=== PATIENT | male | born 1970 | race Hispanic/Latino ===

== ENCOUNTER → 2018-01-20 | Outpatient (CLI) | payer BC | END | disposition home or self-care (01) | LOC: RAH 08:35 | PROVIDERS: ATTEND Internal Medicine Cardiovascular Disease | DX: R07.9 Chest pain, unspecified (principal); R94.31 Abnormal electrocardiogram [ECG] [EKG] | CPT/HCPCS: 78452; 93017; A9500 ×2 ==

== ENCOUNTER → 2018-07-26 | Outpatient (CLI) | payer BC | END | disposition home or self-care (01) | LOC: RAH 07:50 | PROVIDERS: ATTEND Internal Medicine Cardiovascular Disease | DX: K76.0 Fatty (change of) liver, not elsewhere classified (principal) | CPT/HCPCS: 76705 ==

== ENCOUNTER 2019-11-29 18:32 | Inpatient (IN) | payer BC ==
[~2019-11-29] VITALS: Ht 162.6 cm; Wt 104.5 kg
[2019-11-29 18:55] LABS: BASOPHILS % (AUTO) 0.1 % (0.0-5.0); EOSINOPHILS % (AUTO) 2.1 % (0.0-8.0); HEMATOCRIT 46.9 % (42-54); MEAN CORPUSCULAR HGB CONC 34.8 g/dL (32.0-36.0); MEAN CORPUSCULAR VOLUME 92.1 fL (79-99); MONOCYTES % (AUTO) 3.8 % (3.0-13.0); NEUTROPHILS % (AUTO) 89.7 % (40.0-77.0); PLATELET COUNT (AUTO) 217 K/uL (130-400); RED BLOOD CELL COUNT(AUTO) 5.09 MIL/uL (4.50-6.20); RED CELL DISTRIBUTION WIDTH 12.6 % (11.0-15.5); WHITE BLOOD COUNT (AUTO) 10.9 K/uL (4.8-10.8)
[2019-11-29 19:26] LABS: CARBON DIOXIDE 25 mmol/L (21-32); CHLORIDE 100 mmol/L (101-111); CREATININE 1.3 mg/dL (0.5-1.5); GLOMERULAR FILTR. RATE CALC 62 mL/min (>60); GLUCOSE,RANDOM 128 mg/dL (70-105); POTASSIUM 3.9 mmol/L (3.5-5.1); SODIUM SERUM 133 mmol/L (136-145); UREA NITROGEN, BLOOD 22 mg/dL (7-18)
[2019-11-29 19:31] LABS: INR 0.95 (0.85-1.15); PARTIAL THROMBOPLASTIN TIME 34.1 SEC (26.3-35.5); PROTHROMBIN TIME 10.3 SEC (9.6-11.6)
[2019-11-29] MEDS ORDERED: CEFTRIAXONE SODIUM 2 GM VIAL ONE (19:39)
[2019-11-29] MEDS ORDERED: ONDANSETRON HCL 4 MG/2 ML VIAL ONE (19:39)
[2019-11-29] MEDS ORDERED: METHYLPREDNISOLONE SOD SUCC 40MG/ML 1ML ONE (19:39)
[2019-11-29 19:40] LABS: ALANINE AMINOTRANSFERASE 50 U/L (12-78); ALBUMIN 3.5 g/dL (3.5-5.0); ASPARTATE AMINOTRANSFERASE 43 U/L (10-37); BILIRUBIN,TOTAL 0.5 mg/dL (0.2-1.0); MYOGLOBIN 113 ng/mL (10-92); TOTAL PROTEIN, SERUM 8.3 g/dL (6.0-8.3); TROPONIN I < 0.04 ng/mL (0.00-0.06)
[2019-11-29 19:42] LABS: CREATINE KINASE, TOTAL 419 U/L (21-232)
[2019-11-29 19:56] LABS: ABG BASE EXCESS 0.8 mmol/L (-2.0-3.0); ABG HCO3 25.1 mmol/L (21.0-28.0); ABG OXYGEN SATURATION 94.8 % (95.0-99.0); ABG PCO2 39 mmHg (35-48)
[2019-11-29] MEDS ORDERED: SODIUM CHLORIDE 0.9% 1000ML 1,000 ML IV SCH (21:44)
[2019-11-29] MEDS ORDERED: MAG HYDROX/AL HYDROX/SIMETH ES 30 ML SUSP UDCUP PO PRN (21:45)
[2019-11-29] MEDS ORDERED: LACTULOSE 20 GM/30 ML UDCUP PO PRN (21:45)
[2019-11-29] MEDS ORDERED: ERGOCALCIFEROL (VITAMIN D2) 50,000 UNIT CAPSULE PO ONE (21:45)
[2019-11-29] MEDS ORDERED: HYDRALAZINE HCL 20 MG/ML VIAL IV PRN (21:45)
[2019-11-29] MEDS ORDERED: BENZONATATE 100 MG CAPSULE PO PRN (21:45)
[2019-11-29] MEDS ORDERED: PHARMACY COMMUNICATION MISC SCH (21:45)
[2019-11-29] MEDS ORDERED: GUAIFENESIN-DM 200/20 MG 10 ML PO PRN (21:45)
[2019-11-29] MEDS ORDERED: MAG HYDROX/AL HYDROX/SIMETH 30 ML, LIDOCAINE HCL 2% VISCOUS 30 ML, DIPHENHYDRAMINE HCL ... PO PRN ×3 (21:45)
[2019-11-29] MEDS ORDERED: NITROGLYCERIN 0.4 MG SL TAB SL PRN (21:45)
[2019-11-29] MEDS ORDERED: IPRATROPIUM 0.5 MG/2.5 ML INH IH PRN (21:45)
[2019-11-29] MEDS ORDERED: ONDANSETRON HCL 4 MG/2 ML VIAL IV PRN (21:45)
[2019-11-29] MEDS ORDERED: LIDOCAINE HCL 2% VISCOUS 30 ML, MAG HYDROX/AL HYDROX/SIMETH 30 ML, BELLADONNA-PHENOBARB... PO PRN ×3 (21:45)
[2019-11-29] MEDS ORDERED: MORPHINE SULFATE 4 MG/1ML SYG IV PRN (21:45)
[2019-11-29] MEDS ORDERED: MORPHINE SULFATE 2 MG/ML 1ML SYG IV PRN (21:45)
[2019-11-29] MEDS ORDERED: ACETAMINOPHEN 325 MG TAB PO PRN (21:45)
[2019-11-29] MEDS: IPRATROPIUM/ALBUTEROL SULFATE 3 ML SOLUTION IH SCH (22:00)
[2019-11-29] MEDS ORDERED: IOHEXOL 350 MG/ML 100ML INFUS..BTL IV ONE (22:31)
[2019-11-29] MEDS ORDERED: ALBUTEROL INHALER 90MCG/INH IH ONE (22:37)
[2019-11-29] MEDS ORDERED: AZITHROMYCIN 500MG+NS 250ML 250 ML IV ONE (22:38)
[2019-11-29] MEDS ORDERED: ERGOCALCIFEROL (VITAMIN D2) 50,000 UNIT CAPSULE ONE (22:38)
[2019-11-29] MEDS ORDERED: DEXAMETHASONE SOD PHOSPHATE 10MG/ML 1ML VIAL ONE (22:38)
[2019-11-30] VITALS (7 sets, daily range): BP systolic 111–152; BP diastolic 58–93
[2019-11-30] MEDS: IPRATROPIUM/ALBUTEROL SULFATE 3 ML SOLUTION IH SCH ×6 (02:00→22:00)
[2019-11-30] MEDS ORDERED: LEVO125T11 PO (02:48)
[2019-11-30] MEDS ORDERED: LOVA20TA3 PO (02:48)
[2019-11-30] MEDS ORDERED: LAMO200T10 PO (02:48)
[2019-11-30 04:54] LABS: HEMATOCRIT 46.9 % (42-54); LYMPHOCYTES % (AUTO) 4.9 % (21.0-51.0); MEAN CORPUSCULAR HEMOGLOBIN 31.6 pg (27.0-33.0); MEAN CORPUSCULAR HGB CONC 33.7 g/dL (32.0-36.0); MEAN CORPUSCULAR VOLUME 93.8 fL (79-99); NEUTROPHILS % (AUTO) 91.6 % (40.0-77.0); PLATELET COUNT (AUTO) 230 K/uL (130-400); RED CELL DISTRIBUTION WIDTH 12.8 % (11.0-15.5); WHITE BLOOD COUNT (AUTO) 7.9 K/uL (4.8-10.8)
[2019-11-30 05:16] LABS: BILIRUBIN,TOTAL 0.3 mg/dL (0.2-1.0); CREATININE 1.4 mg/dL (0.5-1.5); CRP QUANTITATIVE 119.4 mg/L (0.00-9.0); MAGNESIUM 2.5 mg/dL (1.80-2.40); PHOSPHORUS 4.2 mg/dL (2.5-4.9); POTASSIUM 4.1 mmol/L (3.5-5.1); TOTAL PROTEIN, SERUM 7.9 g/dL (6.0-8.3)
[2019-11-30] MEDS: HEPARIN SODIUM 5000UNIT/ML 1ML VIAL SQ SCH ×3 (06:00→21:13)
[2019-11-30] MEDS: ZINC SULFATE 220 CAPSULE PO SCH (08:12)
[2019-11-30] MEDS: ACETYLCYSTEINE 600 MG CAPSULE PO SCH ×2 (08:13→20:55)
[2019-11-30] MEDS: FAMOTIDINE/PF 20 MG/2 ML VIAL IV SCH ×2 (08:13→20:53)
[2019-11-30] MEDS: ASCORBIC ACID 500 MG TAB PO SCH (08:13)
[2019-11-30] MEDS ORDERED: SODIUM CHLORIDE 0.9% 100 ML IV ONE (10:26)
--- NOTE | 2019-11-30 15:27 | NUR ---
DC PLAN PATIENT LIVES WITH DAUGHTER. PATIENT HAS NO SERVICES OR DME'S. INDEPENDENT ABLE TO PERFORM ADL'S. FEELS SAFE TO RETURN HOME. Addendum: 11/30/19 at 1529 by EDUARDO ZAVALA RN CM Amended: Links added.
[2019-11-30] MEDS ORDERED: CLONAZEPAM 0.5 MG TABLET PO PRN (16:00)
[2019-11-30] MEDS ORDERED: METOPROLOL TARTRATE 1 MG/ML 5ML VIAL IV PRN (18:45)
[2019-11-30 18:48] LABS: ABG BASE EXCESS -0.6 mmol/L (-2.0-3.0); ABG HCO3 22.7 mmol/L (21.0-28.0); ABG OXYGEN SATURATION 83.6 % (95.0-99.0); ABG PCO2 34 mmHg (35-48)
--- NOTE | 2019-11-30 19:16 | NUR ---
Pt placed on Bipap during change of shift due to declining respiratory status. Stat abgs done and primary team made aware of results. Will get repeat ABGs in 1 hr. Patient given 1 unit of conva. plasma during shift and 2nd unit started. Oncoming RN notified of plan of care.
[2019-11-30] MEDS ORDERED: AZITHROMYCIN 500MG+NS 250ML 250 ML IV ONE (19:37)
[2019-11-30] MEDS: CEFTRIAXONE SODIUM 1 GM IVP SCH (20:53)
[2019-11-30] MEDS: DiphenhydrAMINE HCL 50 MG/ML VIAL IV PRN (20:58)
[2019-11-30] MEDS ORDERED: DEXAMETHASONE SOD PHOSPHATE 4 MG/ML 1ML VIAL IVP SCH (21:00)
[2019-11-30] MEDS: AZITHROMYCIN 500MG+NS 250ML 250 ML IV SCH (21:11)
[2019-11-30] MEDS: ENOXAPARIN SODIUM 60 MG/0.6 ML SQ SCH (23:15)
[2019-11-30] MEDS: METHYLPREDNISOLONE SOD SUCC 125MG/2ML VIAL IVP SCH (23:34)
[2019-12-01] MEDS: IPRATROPIUM/ALBUTEROL SULFATE 3 ML SOLUTION IH SCH ×5 (02:00→12:11)
[2019-12-01 03:00] VITALS: BP 115/69
[2019-12-01 05:33] LABS: BASOPHILS % (AUTO) 0.1 % (0.0-5.0); HEMATOCRIT 49.6 % (42-54); MEAN CORPUSCULAR HEMOGLOBIN 31.4 pg (27.0-33.0); MEAN CORPUSCULAR HGB CONC 33.1 g/dL (32.0-36.0); MEAN CORPUSCULAR VOLUME 94.8 fL (79-99); MONOCYTES % (AUTO) 2.8 % (3.0-13.0); NEUTROPHILS % (AUTO) 92.5 % (40.0-77.0); PLATELET COUNT (AUTO) 277 K/uL (130-400); RED BLOOD CELL COUNT(AUTO) 5.23 MIL/uL (4.50-6.20); RED CELL DISTRIBUTION WIDTH 12.8 % (11.0-15.5)
[2019-12-01 05:55] LABS: ALBUMIN 2.9 g/dL (3.5-5.0); BILIRUBIN,TOTAL 0.5 mg/dL (0.2-1.0); CREATININE 1.4 mg/dL (0.5-1.5); MAGNESIUM 2.8 mg/dL (1.80-2.40); PHOSPHORUS 3.8 mg/dL (2.5-4.9); POTASSIUM 4.4 mmol/L (3.5-5.1)
[2019-12-01 07:09] LABS: CRP QUANTITATIVE 183.7 mg/L (0.00-9.0)
[2019-12-01] MEDS: LEVOTHYROXINE 125 MCG TABLET PO SCH (07:34)
[2019-12-01] MEDS: METHYLPREDNISOLONE SOD SUCC 125MG/2ML VIAL IVP SCH ×3 (07:34→20:13)
[2019-12-01] MEDS: ASCORBIC ACID 500 MG TAB PO SCH (08:40)
[2019-12-01] MEDS: ZINC SULFATE 220 CAPSULE PO SCH (08:40)
[2019-12-01] MEDS: ACETYLCYSTEINE 600 MG CAPSULE PO SCH ×2 (08:40→20:14)
[2019-12-01] MEDS: FAMOTIDINE/PF 20 MG/2 ML VIAL IV SCH ×2 (08:40→20:11)
[2019-12-01] MEDS: LAMOTRIGINE 100 MG TABLET PO SCH ×2 (08:40→20:14)
[2019-12-01] MEDS: CEFTRIAXONE SODIUM 1 GM IVP SCH ×2 (08:40→20:13)
[2019-12-01] MEDS: ENOXAPARIN SODIUM 60 MG/0.6 ML SQ SCH ×2 (08:41→20:14)
[2019-12-01 08:42] VITALS: BP 130/78
[2019-12-01] MEDS ORDERED: COMPOUND IV REFRIGERATED 1 EACH IVSOLN MISC PRN (09:30)
[2019-12-01] MEDS ORDERED: REMDESIVIR (EUA) 520 200 MG in SODIUM CHLORIDE 0.9% 250 ML IV SCH (09:30)
[2019-12-01 10:39] LABS: ABG BASE EXCESS -1.1 mmol/L (-2.0-3.0); ABG HCO3 24.9 mmol/L (21.0-28.0); ABG OXYGEN SATURATION 94.1 % (95.0-99.0); ABG PCO2 46 mmHg (35-48)
[2019-12-01 12:04] VITALS: BP 145/86
[2019-12-01] MEDS: ALBUTEROL INHALER 90MCG/INH IH SCH ×2 (12:15→17:33)
[2019-12-01] MEDS: IPRATROPIUM 0.5 MG/2.5 ML INH IH SCH (13:17)
[2019-12-01] MEDS: HYDROXYZINE HCL 25 MG TABLET PO PRN (14:55)
[2019-12-01] MEDS ORDERED: PHARMACY COMMUNICATION MISC SCH (15:00)
[2019-12-01 17:28] VITALS: BP 151/87
[2019-12-01 19:00] VITALS: BP 132/77
[2019-12-01] MEDS: HYDROXYCHLOROQUINE SULFATE 200 MG TAB PO SCH (20:14)
[2019-12-01] MEDS: DiphenhydrAMINE HCL 50 MG/ML VIAL IV PRN (20:15)
[2019-12-01] MEDS: AZITHROMYCIN 500MG+NS 250ML 250 ML IV SCH (20:15)
[2019-12-01] MEDS: ZOLPIDEM TARTRATE 5 MG TAB PO PRN (20:19)
--- NOTE | 2019-12-01 21:35 | NUR ---
Nurse at bedside for medication administration/assessment. After swabbing patient's mouth his oxygen saturation dropped to 82. Heart rate 51. Bipap placed back on. No oral medications/nutrition recommended at this time. Will continue to monitor.
[2019-12-01 23:00] VITALS: BP 136/89
[2019-12-02] VITALS (8 sets, daily range): BP systolic 98–164; BP diastolic 61–98
[2019-12-02] MEDS: ALBUTEROL INHALER 90MCG/INH IH SCH ×4 (00:25→18:00)
[2019-12-02] MEDS: IPRATROPIUM 0.5 MG/2.5 ML INH IH SCH (00:25)
[2019-12-02] MEDS: METHYLPREDNISOLONE SOD SUCC 125MG/2ML VIAL IVP SCH ×4 (03:00→20:42)
[2019-12-02 04:57] LABS: ABG BASE EXCESS 1.2 mmol/L (-2.0-3.0); ABG HCO3 26.6 mmol/L (21.0-28.0); ABG OXYGEN SATURATION 82.8 % (95.0-99.0); ABG PCO2 45 mmHg (35-48)
[2019-12-02 05:10] LABS: BASOPHILS % (AUTO) 0.3 % (0.0-5.0); MEAN CORPUSCULAR VOLUME 94.5 fL (79-99); NEUTROPHILS % (AUTO) 89.7 % (40.0-77.0)
[2019-12-02 05:28] LABS: ALBUMIN 2.6 g/dL (3.5-5.0); BILIRUBIN,TOTAL 0.5 mg/dL (0.2-1.0); CREATININE 1.2 mg/dL (0.5-1.5); HEMATOCRIT 48.1 % (42-54); LYMPHOCYTES % (AUTO) 2.8 % (21.0-51.0); MEAN CORPUSCULAR HEMOGLOBIN 31.6 pg (27.0-33.0); MEAN CORPUSCULAR HGB CONC 33.5 g/dL (32.0-36.0); MONOCYTES % (AUTO) 4.5 % (3.0-13.0); PHOSPHORUS 3.2 mg/dL (2.5-4.9); PLATELET COUNT (AUTO) 298 K/uL (130-400); POTASSIUM 4.2 mmol/L (3.5-5.1); RED BLOOD CELL COUNT(AUTO) 5.09 MIL/uL (4.50-6.20); TOTAL PROTEIN, SERUM 7.9 g/dL (6.0-8.3); WHITE BLOOD COUNT (AUTO) 13.2 K/uL (4.8-10.8)
[2019-12-02] MEDS: PHARMACY COMMUNICATION MISC SCH (05:50)
[2019-12-02 06:14] LABS: CRP QUANTITATIVE 191.3 mg/L (0.00-9.0)
--- NOTE | 2019-12-02 06:30 | NUR ---
Attention MD Please call patient's (Sofia Akbar) for update.
--- NOTE | 2019-12-02 07:42 | NUR ---
Initial contact Pt currently in room 208, report received from AM nurse. Pt aaox4, airway patent on bipap speaking in short sentences. Pt currently tolerating BIPAP I/E /8 RR 18 fiO2 at 100% Pt connected to continous pulse ox monitor, and tele box in semi garrett position. No complaints at this time. VS stable. Informed plan of care
[2019-12-02] MEDS: HYDROXYCHLOROQUINE SULFATE 200 MG TAB PO SCH ×2 (09:19→20:36)
[2019-12-02] MEDS: ASCORBIC ACID 500 MG TAB PO SCH (09:19)
[2019-12-02] MEDS: LAMOTRIGINE 100 MG TABLET PO SCH ×2 (09:19→20:37)
[2019-12-02] MEDS: ENOXAPARIN SODIUM 60 MG/0.6 ML SQ SCH ×2 (09:20→20:36)
[2019-12-02] MEDS: ZINC SULFATE 220 CAPSULE PO SCH (09:21)
[2019-12-02] MEDS: FAMOTIDINE/PF 20 MG/2 ML VIAL IV SCH ×2 (09:21→20:39)
[2019-12-02] MEDS: CEFTRIAXONE SODIUM 1 GM IVP SCH ×2 (09:21→20:39)
[2019-12-02] MEDS: ACETYLCYSTEINE 600 MG CAPSULE PO SCH ×2 (09:22→20:36)
[2019-12-02] MEDS: LEVOTHYROXINE 125 MCG TABLET PO SCH (09:22)
[2019-12-02] MEDS ORDERED: SODIUM CHLORIDE 0.9% 100 ML IV ONE (09:23)
[2019-12-02] MEDS: REMDESIVIR (EUA) 520 100 MG in SODIUM CHLORIDE 0.9% 250 ML IV SCH (13:32)
--- NOTE | 2019-12-02 17:34 | NUR ---
Consult Dr Bello by bedside. Informed of pts worsening cxr and updated labs. Informed pt plan of care
[2019-12-02 18:54] LABS: ABG HCO3 27.6 mmol/L (21.0-28.0); ABG OXYGEN SATURATION 91.5 % (95.0-99.0); ABG PCO2 42 mmHg (35-48)
[2019-12-02] MEDS: AZITHROMYCIN 500MG+NS 250ML 250 ML IV SCH (21:59)
--- NOTE | 2019-12-02 22:50 | NUR ---
Patient family updated on status. He is on Bipap machine rate of 20/8 and 100% FI02. POX 98%, P02 59. In stable condition. All PM meds given. Will continue to monitor.
[2019-12-02] MEDS: HYDROXYZINE HCL 25 MG TABLET PO PRN (23:08)
[2019-12-03] MEDS: ACETAMINOPHEN 325 MG TAB PO PRN ×2 (01:01→22:44)
[2019-12-03] MEDS: DIPHENHYDRAMINE HCL 25 MG CAPSULE PO PRN ×2 (01:01→22:43)
[2019-12-03] MEDS: METHYLPREDNISOLONE SOD SUCC 125MG/2ML VIAL IVP SCH ×4 (02:56→20:17)
[2019-12-03 04:27] VITALS: BP 153/101
[2019-12-03 04:55] LABS: HEMATOCRIT 48.7 % (42-54); MEAN CORPUSCULAR HEMOGLOBIN 31.8 pg (27.0-33.0); MEAN CORPUSCULAR HGB CONC 33.1 g/dL (32.0-36.0); MEAN CORPUSCULAR VOLUME 96.1 fL (79-99); PLATELET COUNT (AUTO) 356 K/uL (130-400); RED BLOOD CELL COUNT(AUTO) 5.07 MIL/uL (4.50-6.20); RED CELL DISTRIBUTION WIDTH 13.3 % (11.0-15.5)
[2019-12-03 05:04] LABS: CREATININE 1.3 mg/dL (0.5-1.5); POTASSIUM 4.1 mmol/L (3.5-5.1)
[2019-12-03 05:10] LABS: ALBUMIN 2.7 g/dL (3.5-5.0); BILIRUBIN,DIRECT 0.2 mg/dL (0.0-0.3); BILIRUBIN,TOTAL 0.4 mg/dL (0.2-1.0); TOTAL PROTEIN, SERUM 7.6 g/dL (6.0-8.3)
[2019-12-03] MEDS: IPRATROPIUM 0.5 MG/2.5 ML INH IH SCH ×4 (06:00→18:45)
[2019-12-03] MEDS: PHARMACY COMMUNICATION MISC SCH (06:00)
[2019-12-03 07:00] VITALS: BP 155/87
[2019-12-03 07:19] LABS: LYMPHOCYTES % (MANUAL) 1 % (22-44); MONOCYTES % (MANUAL) 1 % (2-9); SEGMENTED NEUTROPHILS % 98 % (40-70)
[2019-12-03 07:20] LABS: MAN.DIFF COMMENT-IMPRESSION MANUAL DIFFERENTIAL; PLATELET MORPHOLOGY COMMENT ADEQUATE
[2019-12-03] MEDS: LEVOTHYROXINE 125 MCG TABLET PO SCH (07:49)
[2019-12-03] MEDS: ALBUTEROL INHALER 90MCG/INH IH SCH ×3 (07:50→18:15)
[2019-12-03] MEDS: ASCORBIC ACID 500 MG TAB PO SCH (09:16)
[2019-12-03] MEDS: LAMOTRIGINE 100 MG TABLET PO SCH ×2 (09:17→20:18)
[2019-12-03] MEDS: ZINC SULFATE 220 CAPSULE PO SCH (09:17)
[2019-12-03] MEDS: ACETYLCYSTEINE 600 MG CAPSULE PO SCH ×2 (09:17→20:18)
[2019-12-03] MEDS: FAMOTIDINE/PF 20 MG/2 ML VIAL IV SCH ×2 (09:17→20:19)
[2019-12-03] MEDS: HYDROXYCHLOROQUINE SULFATE 200 MG TAB PO SCH (09:17)
[2019-12-03] MEDS: CEFTRIAXONE SODIUM 1 GM IVP SCH ×2 (09:17→20:20)
[2019-12-03] MEDS: ENOXAPARIN SODIUM 60 MG/0.6 ML SQ SCH ×2 (09:19→20:20)
--- NOTE | 2019-12-03 10:12 | NUR ---
RT Peter RT by bedside for BIPAP to CPAP change. Pt o2 Sat 93%-95% on CPAP. Fio2 100% with Pressure of 7
[2019-12-03 11:00] VITALS: BP 109/83
--- NOTE | 2019-12-03 12:23 | NUR ---
RT Per RT no neb tx given to covid + pt
[2019-12-03] MEDS: REMDESIVIR (EUA) 520 100 MG in SODIUM CHLORIDE 0.9% 250 ML IV SCH (13:05)
--- NOTE | 2019-12-03 13:45 | NUR ---
CPAP 02 SAT 89%-91% on CPAP
[2019-12-03 15:00] VITALS: BP 178/89
--- NOTE | 2019-12-03 15:31 | NUR ---
CPAP 02 SAT o2 sat on CPAP improved 92-96%
--- NOTE | 2019-12-03 18:47 | NUR ---
by bedside Dr Whitney by bedside for rounding. Encouraged pt to Prone. Pt informed plan of care RT #[id number] called to bedside for proning. Pt reports "lets wait 20 mins because i just drank a lot of water" Will endorse to night nurse, pt to be proned
[2019-12-03] MEDS: METOPROLOL TARTRATE 1 MG/ML 5ML VIAL IV SCH (19:30)
[2019-12-03] MEDS: HYDROXYZINE HCL 25 MG TABLET PO PRN (20:52)
[2019-12-03 21:24] VITALS: BP 142/92
[2019-12-03] MEDS: AZITHROMYCIN 500MG+NS 250ML 250 ML IV SCH (21:42)
[2019-12-04] VITALS (49 sets, daily range): BP systolic 101–172; BP diastolic 47–104
[2019-12-04] MEDS: ALBUTEROL INHALER 90MCG/INH IH SCH ×4 (00:15→18:15)
[2019-12-04] MEDS: ZOLPIDEM TARTRATE 5 MG TAB PO PRN (01:16)
[2019-12-04] MEDS: METOPROLOL TARTRATE 1 MG/ML 5ML VIAL IV SCH ×4 (01:30→19:26)
[2019-12-04 01:46] LABS: ABG BASE EXCESS 1.9 mmol/L (-2.0-3.0); ABG HCO3 27.9 mmol/L (21.0-28.0); ABG OXYGEN SATURATION 94.5 % (95.0-99.0); ABG PCO2 49 mmHg (35-48)
[2019-12-04] MEDS ORDERED: LORAZEPAM 2 MG/ML 1 ML VIAL IVP ONE ×2 (02:00→05:00)
[2019-12-04] MEDS: METHYLPREDNISOLONE SOD SUCC 125MG/2ML VIAL IVP SCH ×4 (03:10→20:09)
--- NOTE | 2019-12-04 04:21 | NUR ---
2049: Patient becomes anxious and refusing to stay in prone position. Atarax given as ordered. 2244: He becomes restless, c/o pain. Benadryl and Tylenol PO given. 5: Patient becomes anxious and asked for something to sleep. Taya given and KYLEE Nowak informed of pt condition, restless and anxious despite everything. 0140: ABG ordered and completed with little change. KYLEE Nowak informed. 0215: Ativan 0.5 mg ordered and given. Patient moved closer to nurses station with a sitter. Continue to monitor.
[2019-12-04 04:37] LABS: BILIRUBIN,DIRECT 0.1 mg/dL (0.0-0.3); BILIRUBIN,TOTAL 0.6 mg/dL (0.2-1.0); TOTAL PROTEIN, SERUM 7.7 g/dL (6.0-8.3)
[2019-12-04] MEDS ORDERED: LORAZEPAM 2 MG/ML 1 ML VIAL ONE ×2 (04:58→15:28)
[2019-12-04] MEDS ORDERED: HALOPERIDOL LACTATE 5 MG/ML VIAL ONE (05:31)
[2019-12-04] MEDS: HALOPERIDOL LACTATE 5 MG/ML VIAL IM SCH (05:54)
[2019-12-04 05:56] LABS: ABG BASE EXCESS -3.5 mmol/L (-2.0-3.0); ABG HCO3 21.9 mmol/L (21.0-28.0); ABG OXYGEN SATURATION 84.9 % (95.0-99.0); ABG PCO2 41 mmHg (35-48)
--- NOTE | 2019-12-04 05:59 | NUR ---
0445: KYLEE Nowak called to come and assess pt as nothing is working, with pt becoming more agitated. KYLEE is in and ordered 0.5mg of Ativan IVP, pt medicated with no improvement. 0515: Eliu called Dr. Leslie to come in to also assess pt. Haldol is ordered, 3 mg IM and administered. 0600: No improvement, Patient gets more confused and agitated. He is moved to ICU by team.
[2019-12-04] MEDS: PHARMACY COMMUNICATION MISC SCH (06:00)
[2019-12-04] MEDS: IPRATROPIUM 0.5 MG/2.5 ML INH IH SCH ×4 (06:00→18:00)
[2019-12-04] MEDS ORDERED: FUROSEMIDE 10 MG/ML 4ML VIAL ONE (06:06)
[2019-12-04] MEDS ORDERED: DEXMEDETOMIDINE HCL 200 MCG in SODIUM CHLORIDE 0.9% 50 ML IV SCH (06:15)
[2019-12-04 06:30] LABS: BASOPHILS % (AUTO) 0.5 % (0.0-5.0); HEMATOCRIT 52.1 % (42-54); LYMPHOCYTES % (AUTO) 3.1 % (21.0-51.0); MEAN CORPUSCULAR HEMOGLOBIN 31.6 pg (27.0-33.0); MEAN CORPUSCULAR HGB CONC 32.4 g/dL (32.0-36.0); MEAN CORPUSCULAR VOLUME 97.6 fL (79-99); MONOCYTES % (AUTO) 6.1 % (3.0-13.0); NEUTROPHILS % (AUTO) 85.8 % (40.0-77.0); NUCLEATED RED BLOOD CELLS 0.1 % (0.0-0.19); PLATELET COUNT (AUTO) 470 K/uL (130-400); RED BLOOD CELL COUNT(AUTO) 5.34 MIL/uL (4.50-6.20); RED CELL DISTRIBUTION WIDTH 13.4 % (11.0-15.5); WHITE BLOOD COUNT (AUTO) 26.9 K/uL (4.8-10.8)
[2019-12-04] MEDS ORDERED: NICARDIPINE HCL 25 MG in SODIUM CHLORIDE 0.9% 240 ML IV SCH (06:30)
--- NOTE | 2019-12-04 06:35 | NUR ---
PT RECEIVED IN RM 207 AT 0614. BEDSIDE REPORT RECEIVED FROM SHENG HALL. PT CARE UPGRADED DUE TO DECLINE IN OXYGEN SAT. PT APPEARS ANXIOUS AND IS HYPERVENTILATING. PER REPORT PT RECEIVED 1 MG ATIVAN AROUND 3 AM AND 3MG HALDOL AROUND 5AM. PT IS ON BIPAP R20 P10 FIO2 100%. HR IS 120 O2 SAT 92% RR 37 BP 192/107. 20 G IV TO BILATERAL AC. PT RECEIVED 60 LASIX IV. JOSHI 18 FR INSERTED FOR STRICT I&O'S. PT ATTACHED TO CARDIAC, BP, AND SPO2 MONITOR IN ROOM. SIDERAILS X 3 UP. BED IN LOWEST POSITION. CALL LIGHT IS WITHIN REACH. WILL CONTINUE TO MONITOR THIS PT.
[2019-12-04 06:43] LABS: CREATININE 1.5 mg/dL (0.5-1.5); MAGNESIUM 3.2 mg/dL (1.80-2.40); POTASSIUM 4.4 mmol/L (3.5-5.1)
[2019-12-04] MEDS ORDERED: NICARDIPINE HCL 100 MG in SODIUM CHLORIDE 0.9% 60 ML IV SCH (06:45)
[2019-12-04] MEDS: LAMOTRIGINE 100 MG TABLET PO SCH ×2 (07:29→20:10)
[2019-12-04] MEDS: LEVOTHYROXINE 125 MCG TABLET PO SCH (07:29)
[2019-12-04] MEDS: ASCORBIC ACID 500 MG TAB PO SCH (07:30)
[2019-12-04] MEDS: ZINC SULFATE 220 CAPSULE PO SCH (07:30)
[2019-12-04] MEDS: ACETYLCYSTEINE 600 MG CAPSULE PO SCH ×2 (07:30→20:10)
[2019-12-04 08:08] LABS: CRP QUANTITATIVE 40.9 mg/L (0.00-9.0)
[2019-12-04] MEDS ORDERED: DEXMEDETOMIDINE HCL 1,000 MCG in SODIUM CHLORIDE 0.9% 250 ML IV SCH ×2 (08:30→14:15)
[2019-12-04] MEDS: ENOXAPARIN SODIUM 60 MG/0.6 ML SQ SCH ×2 (09:00→20:10)
[2019-12-04] MEDS: CEFTRIAXONE SODIUM 1 GM IVP SCH ×2 (11:03→20:09)
[2019-12-04] MEDS: FAMOTIDINE/PF 20 MG/2 ML VIAL IV SCH ×2 (11:04→20:09)
[2019-12-04] MEDS: REMDESIVIR (EUA) 520 100 MG in SODIUM CHLORIDE 0.9% 250 ML IV SCH (12:34)
[2019-12-04] MEDS ORDERED: HALOPERIDOL LACTATE 5 MG/ML VIAL IV PRN (15:30)
[2019-12-04] MEDS: LORAZEPAM 2 MG/ML 1 ML VIAL IVP PRN (15:58)
[2019-12-05] VITALS (98 sets, daily range): BP systolic 86–200; BP diastolic 46–111
[2019-12-05] MEDS: ALBUTEROL INHALER 90MCG/INH IH SCH ×2 (00:18→05:36)
[2019-12-05] MEDS: IPRATROPIUM 0.5 MG/2.5 ML INH IH SCH ×3 (00:18→18:00)
[2019-12-05] MEDS: METOPROLOL TARTRATE 1 MG/ML 5ML VIAL IV SCH ×3 (00:19→13:30)
[2019-12-05] MEDS: LORAZEPAM 2 MG/ML 1 ML VIAL IVP PRN (00:48)
[2019-12-05] MEDS: METHYLPREDNISOLONE SOD SUCC 125MG/2ML VIAL IVP SCH ×2 (03:00→08:36)
[2019-12-05 04:12] LABS: BASOPHILS % (AUTO) 0.4 % (0.0-5.0); HEMATOCRIT 49.1 % (42-54); LYMPHOCYTES % (AUTO) 3.5 % (21.0-51.0); MEAN CORPUSCULAR HEMOGLOBIN 31.8 pg (27.0-33.0); MEAN CORPUSCULAR HGB CONC 32.8 g/dL (32.0-36.0); MEAN CORPUSCULAR VOLUME 96.8 fL (79-99); MONOCYTES % (AUTO) 4.1 % (3.0-13.0); NEUTROPHILS % (AUTO) 89.4 % (40.0-77.0); PLATELET COUNT (AUTO) 331 K/uL (130-400); RED BLOOD CELL COUNT(AUTO) 5.07 MIL/uL (4.50-6.20); RED CELL DISTRIBUTION WIDTH 13.2 % (11.0-15.5); WHITE BLOOD COUNT (AUTO) 16.5 K/uL (4.8-10.8)
[2019-12-05 04:31] LABS: B-TYPE NATRIURETIC PEPTIDE 56 pg/mL (0-100)
[2019-12-05 04:42] LABS: ALBUMIN 2.5 g/dL (3.5-5.0); BILIRUBIN,TOTAL 0.4 mg/dL (0.2-1.0); CREATININE 1.3 mg/dL (0.5-1.5); CRP QUANTITATIVE 24.7 mg/L (0.00-9.0); MAGNESIUM 3.9 mg/dL (1.80-2.40); PHOSPHORUS 4.1 mg/dL (2.5-4.9); POTASSIUM 4.3 mmol/L (3.5-5.1); TOTAL PROTEIN, SERUM 6.5 g/dL (6.0-8.3)
[2019-12-05] MEDS: HALOPERIDOL LACTATE 5 MG/ML VIAL IM SCH (05:15)
[2019-12-05] MEDS: PHARMACY COMMUNICATION MISC SCH (05:36)
[2019-12-05] MEDS: CEFTRIAXONE SODIUM 1 GM IVP SCH (08:29)
[2019-12-05] MEDS: ENOXAPARIN SODIUM 60 MG/0.6 ML SQ SCH (08:30)
[2019-12-05] MEDS: FAMOTIDINE/PF 20 MG/2 ML VIAL IV SCH (08:30)
[2019-12-05] MEDS: ASCORBIC ACID 500 MG TAB PO SCH (09:00)
[2019-12-05] MEDS: ACETYLCYSTEINE 600 MG CAPSULE PO SCH ×2 (09:00→19:48)
[2019-12-05] MEDS: ZINC SULFATE 220 CAPSULE PO SCH (09:00)
[2019-12-05] MEDS: LAMOTRIGINE 100 MG TABLET PO SCH (09:13)
[2019-12-05] MEDS: LEVOTHYROXINE 125 MCG TABLET PO SCH (09:13)
--- NOTE | 2019-12-05 11:01 | NUR ---
Family contact attempt Patient coded around 10:55. Called Rodney Vega at [phone] at 1055 with no answer. Called again at 1058 with no answer. CM left message for to call back to [phone]. Cm called [phone]. Received message that number is no longer in service. CM called [phone] at 1056 with no answer. Called again at 1101 with no answer and CM left VM to call back to [phone] or [phone]. CD
--- NOTE | 2019-12-05 11:11 | NUR ---
Family contact attempt Called Rodney Vega again at [phone]. No answer. Call went to Voicemail. CM left message to call back at [phone].
[2019-12-05] MEDS ORDERED: PROPOFOL 1000 MG/100 ML 100 ML IV ONE (11:15)
--- NOTE | 2019-12-05 11:15 | NUR ---
updated on patient Patient called back and updated on change in condition by Dr. Hobbs.
[2019-12-05] MEDS ORDERED: FENTANYL 2500MCG+NS 250ML 250 ML IV ONE (11:40)
[2019-12-05 11:58] LABS: ABG BASE EXCESS -2.4 mmol/L (-2.0-3.0); ABG HCO3 23.6 mmol/L (21.0-28.0); ABG PCO2 45 mmHg (35-48)
[2019-12-05] MEDS: REMDESIVIR (EUA) 520 100 MG in SODIUM CHLORIDE 0.9% 250 ML IV SCH (13:00)
[2019-12-05 13:36] LABS: ABG BASE EXCESS -3.7 mmol/L (-2.0-3.0); ABG HCO3 25.2 mmol/L (21.0-28.0); ABG OXYGEN SATURATION 97.9 % (95.0-99.0); ABG PCO2 60 mmHg (35-48)
[2019-12-05] MEDS ORDERED: DOCUSATE NA 100MG/10ML UDCUP NG SCH (14:45)
[2019-12-05] MEDS ORDERED: COMPOUND IV MISC 1 EACH IVSOLN MISC PRN (15:45)
[2019-12-05] MEDS: DEXTROSE 5%-WATER 1,000 ML IV SCH (16:40)
[2019-12-05] MEDS: PROPOFOL 1000 MG/100 ML 100 ML IV PRN (16:40)
--- NOTE | 2019-12-05 18:00 | NUR ---
PRONE POSITION START Robert was proned at this time. Per order he is be in prone position for 18 hours from 12/05/2019 1800 to 12/06/2019 1200 then supine position for 6 hours 12/06/2019 1200 to 1800. Continue this prone/supine schedule until further notice from primary team.
[2019-12-05] MEDS: VECURONIUM BROMIDE 50 MG in SODIUM CHLORIDE 0.9% 50 ML IV PRN (19:48)
[2019-12-05] MEDS: ENOXAPARIN SODIUM 100 MG/1 ML SQ SCH (19:49)
[2019-12-05] MEDS: LEVETIRACETAM 500 MG in SODIUM CHLORIDE 0.9% 100 ML IV SCH (19:49)
[2019-12-06] VITALS (118 sets, daily range): BP systolic 72–238; BP diastolic 33–232
[2019-12-06] MEDS: HALOPERIDOL LACTATE 5 MG/ML VIAL IM SCH (04:27)
[2019-12-06] MEDS: DEXTROSE 5%-WATER 1,000 ML IV SCH ×3 (04:28→19:20)
[2019-12-06 05:45] LABS: BASOPHILS % (AUTO) 0.1 % (0.0-5.0); HEMATOCRIT 57.8 % (42-54); LYMPHOCYTES % (AUTO) 2.4 % (21.0-51.0); MEAN CORPUSCULAR VOLUME 103.2 fL (79-99); MONOCYTES % (AUTO) 1.5 % (3.0-13.0); NEUTROPHILS % (AUTO) 91.7 % (40.0-77.0); NUCLEATED RED BLOOD CELLS 0.2 % (0.0-0.19); PLATELET COUNT (AUTO) 263 K/uL (130-400); RED CELL DISTRIBUTION WIDTH 13.9 % (11.0-15.5)
[2019-12-06 05:48] LABS: WHITE BLOOD COUNT (AUTO) 34.5 K/uL (4.8-10.8)
[2019-12-06] MEDS: PHARMACY COMMUNICATION MISC SCH (06:00)
[2019-12-06 06:09] LABS: LYMPHOCYTES % (MANUAL) 2 % (22-44); MAN.DIFF COMMENT-IMPRESSION MANUAL DIFFERENTIAL; METAMYELOCYTES % 2 % (0-0); MONOCYTES % (MANUAL) 2 % (2-9); MYELOCYTES % 1 % (0-0); SEGMENTED NEUTROPHILS % 93 % (40-70)
[2019-12-06 06:10] LABS: PLATELET MORPHOLOGY COMMENT ADEQUATE
[2019-12-06 06:18] LABS: ALBUMIN 2.5 g/dL (3.5-5.0); BILIRUBIN,TOTAL 0.5 mg/dL (0.2-1.0); CREATININE 1.4 mg/dL (0.5-1.5); CRP QUANTITATIVE 46.5 mg/L (0.00-9.0); MAGNESIUM 3.4 mg/dL (1.80-2.40); PHOSPHORUS 4.7 mg/dL (2.5-4.9); POTASSIUM 5.1 mmol/L (3.5-5.1); TOTAL PROTEIN, SERUM 6.7 g/dL (6.0-8.3)
[2019-12-06] MEDS ORDERED: LEVOTHYROXINE 100 MCG VIAL IV SCH (06:30)
[2019-12-06 07:53] LABS: ABG BASE EXCESS -1.1 mmol/L (-2.0-3.0); ABG HCO3 26.9 mmol/L (21.0-28.0); ABG OXYGEN SATURATION 81.7 % (95.0-99.0); ABG PCO2 59 mmHg (35-48)
[2019-12-06] MEDS: DOCUSATE NA 100MG/10ML UDCUP PO SCH (09:00)
[2019-12-06] MEDS: ENOXAPARIN SODIUM 100 MG/1 ML SQ SCH ×2 (09:00→20:01)
[2019-12-06] MEDS: SENNOSIDES 8.6 MG TABLET PO SCH (09:00)
[2019-12-06] MEDS: ZINC SULFATE 220 CAPSULE PO SCH (09:00)
[2019-12-06] MEDS: LINEZOLID 600 MG/ISO-OSM 300 ML IV SCH ×2 (09:00→20:00)
[2019-12-06] MEDS: PANTOPRAZOLE 40 MG/VIAL IVP SCH (09:00)
[2019-12-06] MEDS: CEFEPIME HCL 2 GM VIAL IVP SCH (09:00)
[2019-12-06] MEDS: DEXAMETHASONE SOD PHOSPHATE 4 MG/ML 1ML VIAL IVP SCH (09:00)
[2019-12-06] MEDS: ACETYLCYSTEINE 600 MG CAPSULE PO SCH ×2 (09:00→20:01)
[2019-12-06] MEDS: SENNOSIDES 8.6 MG TABLET NG SCH (09:00)
[2019-12-06] MEDS: ASCORBIC ACID 500 MG TAB PO SCH (09:00)
[2019-12-06] MEDS: PROPOFOL 1000 MG/100 ML 100 ML IV PRN ×3 (11:51→20:02)
--- NOTE | 2019-12-06 11:57 | NUR ---
RD NOTIFICATION Pt with ARDS, Intubated, Sedated, NGT in place Recommend initiate Vital AF 1.2 @15mls for 24 hours. Goal rate of 45mls/hr. Recommend monitor renal function/labs. Recommend H2O Flushes at 300mls Q4hrs secondary to hypernatremia Propofol in place at 19.25mls/hr. 508 additional kcal. Recommendations faxed to 2B ([phone]). RD called unit, no answer. NUTRITION NOTE: Pt admitted with COVID-19 PNA. Poor PO intake. ARDS. S/p intubation and sedation. NGT, PICC placed. Monitored labs: WBC 34.5, Na 155, K 5.1, BUN 41, GFR 57, BG 139, Ca 7.8, Mg 3.40, ALT 79, Alk 45, LDH 494, CRP 46.50, BNP 109, Alb 2.5, TG 688. Obesity Class III (BMI 40). RD to continue to monitor. Please notify as additional nutrition concerns arise. Thank you. Addendum: 12/06/19 at [address] Amended: Links added.
[2019-12-06] MEDS ORDERED: METRONIDAZOLE 500MG/100ML BAG 100 ML IV SCH (14:00)
[2019-12-06] MEDS: METOPROLOL TARTRATE 1 MG/ML 5ML VIAL IV SCH ×2 (14:40→19:51)
[2019-12-06] MEDS: LEVETIRACETAM 500 MG in SODIUM CHLORIDE 0.9% 100 ML IV SCH ×2 (14:53→20:25)
--- NOTE | 2019-12-06 18:38 | NUR ---
PT TURNED TO PRONE POSITION AT 1800. TOLERATED WELL. [employer] AT 1745 FOR SPOUSE COULD SEE AND TALK TO PT. WILL CONTINUE TO MONITOR PT'S PROGRESS.
[2019-12-06] MEDS: VECURONIUM BROMIDE 50 MG in SODIUM CHLORIDE 0.9% 50 ML IV PRN (20:02)
[2019-12-07] VITALS (102 sets, daily range): BP systolic 72–161; BP diastolic 46–84
[2019-12-07] MEDS: PROPOFOL 1000 MG/100 ML 100 ML IV PRN ×4 (00:06→15:55)
[2019-12-07] MEDS: METOPROLOL TARTRATE 1 MG/ML 5ML VIAL IV SCH ×4 (02:00→19:55)
[2019-12-07] MEDS: HALOPERIDOL LACTATE 5 MG/ML VIAL IM SCH (05:15)
[2019-12-07] MEDS: LEVOTHYROXINE 100 MCG VIAL IV SCH (05:26)
[2019-12-07] MEDS: DEXTROSE 5%-WATER 1,000 ML IV SCH (06:18)
[2019-12-07 06:29] LABS: CRP QUANTITATIVE 150.8 mg/L (0.00-9.0)
[2019-12-07] MEDS: LEVETIRACETAM 500 MG in SODIUM CHLORIDE 0.9% 100 ML IV SCH (08:41)
[2019-12-07] MEDS: LINEZOLID 600 MG/ISO-OSM 300 ML IV SCH ×2 (08:41→19:56)
[2019-12-07] MEDS: ASCORBIC ACID 500 MG TAB PO SCH (08:41)
[2019-12-07] MEDS: ZINC SULFATE 220 CAPSULE PO SCH (08:41)
[2019-12-07] MEDS: PANTOPRAZOLE 40 MG/VIAL IVP SCH (08:41)
[2019-12-07] MEDS: ACETYLCYSTEINE 600 MG CAPSULE PO SCH (08:42)
[2019-12-07] MEDS: SENNOSIDES 8.6 MG TABLET NG SCH (08:42)
[2019-12-07] MEDS: DEXAMETHASONE SOD PHOSPHATE 4 MG/ML 1ML VIAL IVP SCH (08:42)
[2019-12-07] MEDS: ENOXAPARIN SODIUM 100 MG/1 ML SQ SCH (08:43)
[2019-12-07] MEDS: DOCUSATE NA 100MG/10ML UDCUP PO SCH (09:00)
[2019-12-07] MEDS: CEFEPIME HCL 2 GM VIAL IVP SCH (09:00)
[2019-12-07] MEDS: SENNOSIDES 8.6 MG TABLET PO SCH (09:00)
[2019-12-07 13:09] LABS: CREATININE 1.5 mg/dL (0.5-1.5); POTASSIUM 5.1 mmol/L (3.5-5.1)
[2019-12-07 13:14] LABS: ALBUMIN 1.9 g/dL (3.5-5.0); BILIRUBIN,TOTAL 0.4 mg/dL (0.2-1.0)
[2019-12-07] MEDS: VECURONIUM BROMIDE 50 MG in SODIUM CHLORIDE 0.9% 50 ML IV PRN (13:46)
[2019-12-07] MEDS ORDERED: FENTANYL 2500MCG+NS 250ML 250 ML IV ONE (15:09)
[2019-12-07] MEDS ORDERED: DEXTROSE 5%-WATER 1,000 ML IV ONE (17:13)
--- NOTE | 2019-12-07 17:56 | NUR ---
Progress Note Robert is hemodynamically stable, tolerating sedation and paralytic, see MAR, and is compliant with the ventilator, tolerating FI02 30%. He was supined at 1200, due to be proned Spouse Tucker Israelas given patient status update and plan of care reviewed. Spouse also called on Anson's cell phone on [employer] so that she could see him.
[2019-12-07] MEDS: ENOXAPARIN SODIUM 60 MG/0.6 ML SQ SCH (19:57)
[2019-12-07] MEDS: LAMOTRIGINE 100 MG TABLET PO SCH (21:00)
[2019-12-07] MEDS: METRONIDAZOLE 500MG/100ML BAG 100 ML IV SCH (22:43)
[2019-12-08] VITALS (74 sets, daily range): BP systolic 84–164; BP diastolic 46–80
[2019-12-08] MEDS ORDERED: FENTANYL 2500MCG+NS 250ML 250 ML IV ONE ×2 (01:12→05:43)
[2019-12-08] MEDS: METOPROLOL TARTRATE 1 MG/ML 5ML VIAL IV SCH ×4 (02:00→20:00)
[2019-12-08 03:50] LABS: ABG BASE EXCESS -4.6 mmol/L (-2.0-3.0); ABG HCO3 22.8 mmol/L (21.0-28.0); ABG OXYGEN SATURATION 76.6 % (95.0-99.0); ABG PCO2 51 mmHg (35-48)
[2019-12-08] MEDS: HALOPERIDOL LACTATE 5 MG/ML VIAL IM SCH (04:10)
[2019-12-08] MEDS: METRONIDAZOLE 500MG/100ML BAG 100 ML IV SCH ×3 (05:24→21:49)
[2019-12-08] MEDS: LEVOTHYROXINE 100 MCG VIAL IV SCH (05:24)
[2019-12-08 05:40] LABS: BASOPHILS % (AUTO) 0.3 % (0.0-5.0); EOSINOPHILS % (AUTO) 0.8 % (0.0-8.0); HEMATOCRIT 49.7 % (42-54); LYMPHOCYTES % (AUTO) 2.8 % (21.0-51.0); MEAN CORPUSCULAR HEMOGLOBIN 31.4 pg (27.0-33.0); MEAN CORPUSCULAR HGB CONC 30.8 g/dL (32.0-36.0); MEAN CORPUSCULAR VOLUME 102.1 fL (79-99); MONOCYTES % (AUTO) 3.3 % (3.0-13.0); NEUTROPHILS % (AUTO) 87.5 % (40.0-77.0); PLATELET COUNT (AUTO) 135 K/uL (130-400); RED BLOOD CELL COUNT(AUTO) 4.87 MIL/uL (4.50-6.20); RED CELL DISTRIBUTION WIDTH 13.7 % (11.0-15.5); WHITE BLOOD COUNT (AUTO) 20.3 K/uL (4.8-10.8)
[2019-12-08 06:20] LABS: ALBUMIN 1.8 g/dL (3.5-5.0); BILIRUBIN,TOTAL 0.7 mg/dL (0.2-1.0); CREATININE 1.5 mg/dL (0.5-1.5); CRP QUANTITATIVE 55.8 mg/L (0.00-9.0); POTASSIUM 4.6 mmol/L (3.5-5.1); TOTAL PROTEIN, SERUM 5.6 g/dL (6.0-8.3)
[2019-12-08] MEDS: DOCUSATE NA 100MG/10ML UDCUP PO SCH (09:00)
[2019-12-08] MEDS: SENNOSIDES 8.6 MG TABLET PO SCH (09:00)
[2019-12-08] MEDS: ASCORBIC ACID 500 MG TAB PO SCH (09:35)
[2019-12-08] MEDS: ENOXAPARIN SODIUM 60 MG/0.6 ML SQ SCH ×2 (09:35→20:18)
[2019-12-08] MEDS: DEXAMETHASONE SOD PHOSPHATE 4 MG/ML 1ML VIAL IVP SCH (09:35)
[2019-12-08] MEDS: ZINC SULFATE 220 CAPSULE PO SCH (09:35)
[2019-12-08] MEDS: SENNOSIDES 8.6 MG TABLET NG SCH (09:36)
[2019-12-08] MEDS: LAMOTRIGINE 100 MG TABLET PO SCH ×2 (09:36→20:18)
[2019-12-08] MEDS: PANTOPRAZOLE 40 MG/VIAL IVP SCH (09:37)
[2019-12-08] MEDS: CEFEPIME HCL 2 GM VIAL IVP SCH (09:37)
[2019-12-08] MEDS: LINEZOLID 600 MG/ISO-OSM 300 ML IV SCH ×2 (09:38→20:18)
[2019-12-08] MEDS ORDERED: DEXTROSE 5%-WATER 1,000 ML IV ONE (09:40)
[2019-12-08] MEDS ORDERED: MIDAZOLAM HCL 50 MG in SODIUM CHLORIDE 0.9% 50 ML IV SCH (10:15)
[2019-12-08] MEDS ORDERED: FENTANYL CITRATE PF 0.05 MG/ML 2,500 MCG in SODIUM CHLORIDE 0.9% 200 ML IVPB PRN (23:30)
[2019-12-09] VITALS (30 sets, daily range): BP systolic 117–144; BP diastolic 59–76
[2019-12-09] MEDS: METOPROLOL TARTRATE 1 MG/ML 5ML VIAL IV SCH (02:00)
[2019-12-09 04:58] LABS: ALBUMIN 1.9 g/dL (3.5-5.0); BILIRUBIN,TOTAL 0.6 mg/dL (0.2-1.0); CREATININE 1.5 mg/dL (0.5-1.5); POTASSIUM 5.1 mmol/L (3.5-5.1)
[2019-12-09] MEDS: LEVOTHYROXINE 100 MCG VIAL IV SCH (05:15)
[2019-12-09] MEDS: METRONIDAZOLE 500MG/100ML BAG 100 ML IV SCH (05:15)
[2019-12-09] MEDS: HALOPERIDOL LACTATE 5 MG/ML VIAL IM SCH (05:15)
[2019-12-09 05:28] LABS: BASOPHILS % (AUTO) 0.3 % (0.0-5.0); EOSINOPHILS % (AUTO) 0.6 % (0.0-8.0); HEMATOCRIT 49.8 % (42-54); LYMPHOCYTES % (AUTO) 3.4 % (21.0-51.0); MEAN CORPUSCULAR HEMOGLOBIN 31.7 pg (27.0-33.0); MEAN CORPUSCULAR HGB CONC 31.1 g/dL (32.0-36.0); MEAN CORPUSCULAR VOLUME 101.8 fL (79-99); MONOCYTES % (AUTO) 5.7 % (3.0-13.0); NEUTROPHILS % (AUTO) 85.8 % (40.0-77.0); PLATELET COUNT (AUTO) 197 K/uL (130-400); RED BLOOD CELL COUNT(AUTO) 4.89 MIL/uL (4.50-6.20); RED CELL DISTRIBUTION WIDTH 13.3 % (11.0-15.5)
--- NOTE | 2019-12-09 10:54 | NUR ---
Time of 930December 09, 2019
--- NOTE | 2019-12-09 10:55 | NUR ---
progress note At 09 while repositioning, turning the head with patient in prone position arterial line was noted to be dampened with no reading, nibp read sbp 60s, o2 sat probe reading below 90%. Carotid pulse faint but palpable with hr rate 40. Patient immediately supined with respiratory therapy at the bedside. Femoral pulses palpated bilaterally and carotid pulses palpated bilaterally with no pulse appreciated. Code button immediately pushed compressions initiated. Code proceeded per ACLS without ROSC. Time of 930. Spouse notified.
== END 2019-12-09 09:31 | disposition expired | DRG 208 ==
LOC: EDH 18:32 → EDHIP 21:44 → 2AH 23:37 → 2DH 12-04 02:27 → 2BH 12-04 06:10
PROVIDERS: ADMIT Internal Medicine; ATTEND Internal Medicine
PROC: 5A09357 Assistance with Respiratory Ventilation, Less than 24 Consecutive Hours, Continuous Positive Airway Pressure (ICD-10-PCS; 2019-11-30)
PROC: XW13325 Transfusion of Convalescent Plasma (Nonautologous) into Peripheral Vein, Percutaneous Approach, New Technology Group 5 (ICD-10-PCS; 2019-11-30)
PROC: 5A09357 Assistance with Respiratory Ventilation, Less than 24 Consecutive Hours, Continuous Positive Airway Pressure (ICD-10-PCS; 2019-12-01)
PROC: XW033E5 Introduction of Remdesivir Anti-infective into Peripheral Vein, Percutaneous Approach, New Technology Group 5 (ICD-10-PCS; 2019-12-01)
PROC: 5A09357 Assistance with Respiratory Ventilation, Less than 24 Consecutive Hours, Continuous Positive Airway Pressure (ICD-10-PCS; 2019-12-02)
PROC: 5A09457 Assistance with Respiratory Ventilation, 24-96 Consecutive Hours, Continuous Positive Airway Pressure (ICD-10-PCS; 2019-12-03)
PROC: 5A1945Z Respiratory Ventilation, 24-96 Consecutive Hours (ICD-10-PCS; principal; 2019-12-05)
PROC: 5A12012 Performance of Cardiac Output, Single, Manual (ICD-10-PCS; 2019-12-05)
PROC: 0BH17EZ Insertion of Endotracheal Airway into Trachea, Via Natural or Artificial Opening (ICD-10-PCS; 2019-12-05)
PROC: 02HV33Z Insertion of Infusion Device into Superior Vena Cava, Percutaneous Approach (ICD-10-PCS; 2019-12-06)
PROC: B548ZZA Ultrasonography of Superior Vena Cava, Guidance (ICD-10-PCS; 2019-12-06)
PROC: 03HC33Z Insertion of Infusion Device into Left Radial Artery, Percutaneous Approach (ICD-10-PCS; 2019-12-06)
PROC: 5A12012 Performance of Cardiac Output, Single, Manual (ICD-10-PCS; 2019-12-09)
DX: U07.1 COVID-19 (principal); J12.89 Other viral pneumonia; G93.41 Metabolic encephalopathy; J96.01 Acute respiratory failure with hypoxia; J96.02 Acute respiratory failure with hypercapnia; E87.0 Hyperosmolality and hypernatremia; Z68.41 Body mass index [BMI] 40.0-44.9, adult; E87.1 Hypo-osmolality and hyponatremia; N17.9 Acute kidney failure, unspecified; E03.9 Hypothyroidism, unspecified; E86.1 Hypovolemia; E66.01 Morbid (severe) obesity due to excess calories; E87.8 Other disorders of electrolyte and fluid balance, not elsewhere classified; R73.9 Hyperglycemia, unspecified; F41.9 Anxiety disorder, unspecified; I12.9 Hypertensive chronic kidney disease with stage 1 through stage 4 chronic kidney disease, or unspecified chronic kidney disease; N18.2 Chronic kidney disease, stage 2 (mild); Z79.899 Other long term (current) drug therapy
CPT/HCPCS: 31500; 36415; 36430; 36600; 71045; 71275; 80048; 80053; 80076; 82248; 82435; 82550; 82728; 82803; 82947; 82948; 83605; 83615; 83735; 83874; 83880; 84100; 84132; 84145; 84295; 84478; 84484; 85018; 85025; 85378; 85610; 85730; 86140; 86900; 86901; 86927; 87040; 87071; 87205; 87426; 92950; 93005; 93306; 94002; 94003; 94660; 94760; 99291; A4606; C9113; G0378; J0360; J0456; J0692; J0696; J1100; J1200; J1630; J1644; J1650; J1940; J1953; J2020; J2060; J2270; J2405; J2704; J2920; J2930; J3010; J3490; J7050; J7070; Q0163; Q9967